=== PATIENT | male | born 1980 | race African-American/Black ===

== ENCOUNTER 2018-07-29 00:56 | Emergency (ER) | payer BC ==
[~2018-07-29] VITALS: Ht 175.3 cm; Wt 106.8 kg
[~2018-07-29 00:56] MED LIST: ADVAIR; PROAIR; PROVENTIL
[2018-07-29 05:03] VITALS: BP 132/89
== END 2018-07-29 05:08 | disposition home or self-care (01) ==
LOC: ER 02:26
DX: I10 Essential (primary) hypertension (principal); J45.909 Unspecified asthma, uncomplicated
CPT/HCPCS: 99283